=== PATIENT | female | born 2000 | race Caucasian/White ===

== ENCOUNTER 2019-10-14 12:47 | Emergency (ER) | payer SELFPAY | END 2019-10-14 13:52 | disposition home or self-care (01) | LOC: ERS 12:47 | DX: B34.9 Viral infection, unspecified (principal); G43.909 Migraine, unspecified, not intractable, without status migrainosus; F17.210 Nicotine dependence, cigarettes, uncomplicated | CPT/HCPCS: 87804; 99283 ==

== ENCOUNTER 2020-06-16 11:56 | Emergency (ER) | payer SELFPAY ==
[2020-06-16 12:32] LABS: #Basophils 0.1 thou/uL (0.0-0.2); #Eosinphils 0.1 thou/uL (0.0-0.7); #Lymphocytes 1.7 thou/uL (1.20-3.40); #Monocytes 0.9 thou/uL (0.11-0.59); #Neutrophils 7.6 thou/uL (1.40-6.50); %Basophils 0.5 % (0.0-1.0); %Lymphocytes 16.5 % (21.0-51.0); %Monocytes 8.5 % (0.0-10.0); %Neutrophils 73.5 % (42.0-75.0); Hemoglobin 13.9 g/dL (12.0-16.0); Mean Corpuscular HGB CONC 33.7 g/dL (32.0-36.0); Mean Corpuscular Hemoglobin 32.9 pg (27.0-31.0); Mean Corpuscular Volume 97.7 fL (78.0-98.0); Mean Platelet Volume 6.6 fL (7.4-10.4); Platelet Count 329 thou/uL (130-400); RBC Distribution Width 10.6 % (11.5-14.5); Red Blood Cell (RBC) Count 4.21 mill/uL (4.20-5.40); White Blood Cell (WBC) Count 10.3 thou/uL (4.8-10.8)
[2020-06-16 12:37] LABS: BHCG - Serum Negative (NEGATIVE); Pregs Control Background? CLEAR/WHITE (CLR/WHITE); Pregs Control Bar Appear? YES (CONTROL BAR)
[2020-06-16 13:22] LABS: Bilirubin Negative (Negative); Blood, Urine 3+ (Negative); Clarity Turbid (Clear); Glucose, Urine (Dipstick) Normal (Negative); Ketone, Urine Negative (Negative); Leukocyte 75 Leu/uL (Negative); Nitrite Negative (Negative); Protein, Urine (Dipstick) 20 mg/dL (Neg-Trace); RBC/HPF Greater than 50 HPF (0-3); Specific Gravity, Urine 1.024 (1.002-1.036); Squamous Epithelial None Seen HPF (0-3); Urobilinogen Normal mg/dL (Less than 2); WBC/HPF 21-50 HPF (0-3)
[2020-06-16 13:24] LABS: Bacteria/HPF 1+ HPF (None Seen)
== END 2020-06-16 13:49 | disposition home or self-care (01) ==
LOC: ERS 11:56
DX: N30.00 Acute cystitis without hematuria (principal); N94.6 Dysmenorrhea, unspecified; F32.9 Major depressive disorder, single episode, unspecified; G43.909 Migraine, unspecified, not intractable, without status migrainosus; F17.210 Nicotine dependence, cigarettes, uncomplicated; Z79.899 Other long term (current) drug therapy
CPT/HCPCS: 36415; 51701; 81003; 81015; 84703; 85025

== ENCOUNTER 2020-06-18 23:04 | Emergency (ER) | payer SELFPAY ==
--- NOTE | 2020-06-19 00:01 | ULT ---
Renal sonogram HISTORY: Hematuria. FINDINGS: The right kidney is 12.4 cm length. Mild distention of the renal pelvis with echogenic debr is correlating with the CT findings. Urinary bladder is incompletely distended. Echogenic debris within the dependent portion. Left kidney is 11.1 cm length with a normal appearance. IMPRESSION : Findings correlate with recent CT exam. Echogenic debris within the right renal collecting system and ureter likely represents blood. Cause is not evident.
== END 2020-06-19 00:22 | disposition home or self-care (01) ==
LOC: ERS 23:04
DX: R31.9 Hematuria, unspecified (principal); F32.9 Major depressive disorder, single episode, unspecified; F17.210 Nicotine dependence, cigarettes, uncomplicated; F17.290 Nicotine dependence, other tobacco product, uncomplicated; Z79.899 Other long term (current) drug therapy
CPT/HCPCS: 76770

== ENCOUNTER 2021-05-08 18:11 | Emergency (ER) | payer SELFPAY | END 2021-05-08 20:34 | disposition home or self-care (01) | LOC: ERS 18:11 | DX: R09.81 Nasal congestion (principal); Z79.899 Other long term (current) drug therapy; G43.909 Migraine, unspecified, not intractable, without status migrainosus; F17.210 Nicotine dependence, cigarettes, uncomplicated | CPT/HCPCS: 71045 ==